=== PATIENT | female | born 1965 | race Caucasian/White ===

== ENCOUNTER 2023-07-16 22:47 | Emergency (ER) | payer OTHER, SELFPAY ==
[2023-07-16 22:52] VITALS: BP 139/83; PULSE 87; RESP 16; TEMP 37.1; O2SAT 96; BMI 22.8
[2023-07-16 23:04] VITALS: PULSE 87
--- NOTE | 2023-07-16 23:04 | ECG_ITS ---
[facility] Test Date: 2023-07-16 Pat Name: Maria C Nguyen Department: Room: - Gender: Female Assistant Business Manager: : 1965 Requested By: Order Number: [id number] Reading MD: DEBORAH MELENDEZ Measurements Intervals [place] Rate: 78 P: 38 CO: 226 QRS: 91 QRSD: 86 T: 77 QT: 380 QTc: 413 Interpretive Statements 1100 Sinus rhythm 2231 First degree AV block 2420 RSR (QR) in lead V1/V2, consistent with right ventricular conduction delay 7102 [address] right axis deviation ST/T wave changes, can't exclude anteroseptaal ischemia 9150 abnormal ECG No previous ECG available for comparison Electronically Signed On 07-18-2023 7:02:42 EDT by DEBORAH MELENDEZ
--- NOTE | 2023-07-16 23:04 | XR_ITS ---
The [address] [address] Patient Name: YEMI MIMS MRN: [id number] date: 1965 Sex: F Assigned Patient Location: ER Current Patient Location: ER Accession/Order Number: [id number] Exam Date: 07/16/2023 23:10 Report Date: 07/16/2023 23:57 At the request of: LUCAS ADKINS Procedure: XR chest 1V EXAM: XR chest 1V HISTORY: chest pain COMPARISON: None. TECHNIQUE: One view of the chest was obtained. FINDINGS: The cardiac silhouette is normal in size. There are postsurgical changes of the chest with median sternotomy wires in place. There is no significant pneumothorax or pleural effusion. No acute osseous abnormality is seen. XR/XR chest 1V IMPRESSION: 1. No acute cardiopulmonary abnormality. Electronically authenticated by: Augustina KIMBALL Date: 07/16/2023 23:57
--- NOTE | 2023-07-16 23:05 | ED_ITS ---
HPI - Chest Pain General Chief Complaint: Chest Pain Stated Complaint: chest pain Time Seen by Provider: 07/16/23 22:50 Source: patient Mode of arrival: walk-in History of Present Illness HPI narrative: 58-year-old female presents for chest pain. It is now resolved according to the patient. It was in the middle part of her sternum and didn't seem to radiate. She did not have shortness of breath. It started as she was falling asleep [place] g[place], shortly before coming into the emergency department. No cough or vomiting or back pain. Related Data Home Medications Medication Instructions Recorded Confirmed cholecalciferol (vitamin D3) 50 07/16/23 mcg (2,000 unit) capsule fluoxetine 10 mg capsule mg 07/16/23 Review of Systems ROS Narrative A ten point review of systems is negative except as noted above. PFSH PFSH Medical History (Updated 07/17/23 @ 01:58 by Caleb Hewitt MD) Multiple sclerosis ?G35 - Multiple sclerosis (ICD-10) Surgical History (Updated 07/16/23 @ 23:10 by Sherin Romero) Heart valve replaced ?Z95.2 - Presence of prosthetic heart valve (ICD-10) Social History Smoking status: Current every day smoker Exam Narrative Exam Narrative: Nurses note and vital signs reviewed and patient is not hypoxic. General: The patient appears well and in no apparent distress. Patient is resting comfortably on cart. Skin: Warm, dry, no pallor noted. There is no rash noted. Head: Normocephalic, atraumatic Eye: Normal conjunctiva, no drainage Ears, Nose, Mouth, and Throat: oral mucosa is moist. Nares patent. Cardiovascular: Regular Rate and Rhythm, not tachycardic Respiratory: Patient is in no distress, no accessory muscle use, lungs are clear to auscultation, no wheezing, rales or rhonchi Back: non-tender GI: nontender Musculoskeletal: The patient has no evidence of calf tenderness, no pitting edema, symmetrical pulses noted bilaterally Neurological: A&O, normal speech Psychiatric: Cooperative Constitutional Vital Signs, click to edit/add: Last Vital Signs Temp 98.7 F 07/16/23 22:52 Pulse 78 07/17/23 00:57 Resp 20 07/17/23 00:57 BP 113/56 07/17/23 00:57 Pulse Ox 98 07/17/23 00:57 O2 Del Method Room Air 07/17/23 00:57 Course Vital Signs Vital signs: Vital Signs Temperature 98.7 F 07/16/23 22:52 Pulse Rate 87 07/16/23 22:52 Respiratory Rate 16 07/16/23 22:52 Blood Pressure 139/83 07/16/23 22:52 Pulse Oximetry 96 07/16/23 22:52 Oxygen Delivery Method Room Air 07/16/23 22:52 Temperature 98.7 F 07/16/23 22:52 Pulse Rate 78 07/17/23 00:57 Respiratory Rate 20 07/17/23 00:57 Blood Pressure 113/56 07/17/23 00:57 Pulse Oximetry 98 07/17/23 00:57 Oxygen Delivery Method Room Air 07/17/23 00:57 MDM - Chest Pain MDM Narrative Medical decision making narrative: the patient's workup including two troponins is negative. She remained symptom- free and will be discharged home. She'll call her doctor in the morning for follow-up. Treatment diagnosis and follow up are discussed with the patient. Differential Diagnosis Differential diagnosis: Likely pneumothorax, unstable angina pectoris, atypical chest pain, st elevation myocardial infarction, costochondritis and chest pain Lab Data Attestation: I reviewed the patient's lab results. Labs: Lab Results 07/16/23 07/16/23 Range/Units 00:17 23:10 WBC 10.3 (4.0-11.0) 10^3/uL RBC 4.76 (4.20-5.40) 10^6/uL Hgb 13.7 (12.0-16.0) g/dL Hct 41.1 (36.0-48.0) % MCV 86.3 (81.0-99.0) fL MCH 28.8 (26.7-34.0) pg MCHC 33.3 (29.9-35.2) g/dL RDW 13.3 (11.0-15.0) % Plt Count 249 (150-450) 10^3/uL MPV 10.7 (9.5-13.5) fL Neut % (Auto) 55.7 (43.0-75.0) % Lymph % (Auto) 30.0 (20.5-60.0) % Rolette % (Auto) 5.7 (1.7-12.0) % Eos % (Auto) 7.2 H (0.9-7.0) % Baso % (Auto) 1.0 (0.2-2.0) % Neut # (Auto) 5.7 (1.4-6.5) 10^3/uL Lymph # (Auto) 3.1 (1.2-3.8) 10^3/uL Rolette # (Auto) 0.6 (0.3-0.8) 10^3/uL Eos # (Auto) 0.7 (0.0-0.7) 10^3/uL Baso # (Auto) 0.1 (0.0-0.1) 10^3/uL Abs Immat Gran (auto) 0.04 H (0.00-0.03) 10^3/uL Imm/Tot Granulo (auto) 0.4 (0.0-0.5) % Sodium 139 (136-145) mmol/L Potassium 3.5 (3.5-5.1) mmol/L Chloride 105 (98-107) mmol/L Carbon Dioxide 28.3 (21.0-32.0) mmol/L Anion Gap 9.2 BUN 15.0 (7.0-18.0) mg/dL Creatinine 0.88 (0.55-1.02) mg/dL Est GFR ( Amer) >60 (>=60) Est GFR (Non-Af Amer) >60 (>=60) BUN/Creatinine Ratio 17.0 Glucose 114 H (74-106) mg/dL Calcium 9.4 (8.5-10.1) mg/dL Troponin I High Sens 5.1 5.2 (4.0-51.3) pg/mL Imaging Data Chest x-ray: Radiologist's impression: Procedure: XR chest 1V EXAM: XR chest 1V HISTORY: chest pain COMPARISON: None. TECHNIQUE: One view of the chest was obtained. FINDINGS: The cardiac silhouette is normal in size. There are postsurgical changes of the chest with median sternotomy wires in place. There is no significant pneumothorax or pleural effusion. No acute osseous abnormality is seen. IMPRESSION: 1. No acute cardiopulmonary abnormality. Electronically authenticated by: Augustina KIMBALL Date: 07/16/2023 23:57 ECG Data Attestation: I personally reviewed and interpreted this ECG as follows: (EKG on my interpretation shows normal sinus rhythm with a rate of 78 and no acute changes. First-degree AV block present.) Heart Score History: Slightly/Non-Suspicious ECG: Normal Age: >45-<65 years Risk Factors: 1 or 2 Risk Factors Troponin: <Normal Limit Total Heart Score Recommendations & Risks:: 2 Discharge Plan Discharge Chief Complaint: Chest Pain Clinical Impression: Chest pain Patient Disposition: Home, Self-Care Time of Disposition Decision: 01:58 Condition: Good Mode of Transportation: Private Vehicle Prescriptions / Home Meds: No Action fluoxetine 10 mg capsule cholecalciferol (vitamin D3) 50 mcg (2,000 unit) capsule Instructions: Chest Pain (ED) Stand Alone Forms: Portal Instructions Referrals: Physician,Non-Staff, MD [Primary Care Provider] - 1 week
--- NOTE | 2023-07-16 23:10 | PC.NURSE ---
Patient was at home trying to fall asleep when she started to experience center nonradiating chest pain. states she has felt this before. hx cardiac surgery in 1999 states she has not had any issues since. states chest pain as since resolved and her brought her in. took nurse to the side after triage and states patient is downplaying the severity of chest pain. states he was watching the football game when he heard the patient screaming out in pain and when he went to check she was clutching her left side but still did not want to come to the emergency room until he threatened to call the ambulance.
[2023-07-16 23:19] LABS: Basophils Absolute Auto 0.1 10^3/uL (0.0-0.1); Eosinophils Absolute Auto 0.7 10^3/uL (0.0-0.7); Eosinophils Percent Auto 7.2 % (0.9-7.0); Hematocrit 41.1 % (36.0-48.0); Hemoglobin 13.7 g/dL (12.0-16.0); Immature Granulocytes Abs Auto 0.04 10^3/uL (0.00-0.03); Immature Granulocytes Pct Auto 0.4 % (0.0-0.5); Lymphocytes Absolute Auto 3.1 10^3/uL (1.2-3.8); Mean Corpuscular HGB Conc 33.3 g/dL (29.9-35.2); Mean Corpuscular Hemoglobin 28.8 pg (26.7-34.0); Mean Corpuscular Volume 86.3 fL (81.0-99.0); Mean Platelet Volume 10.7 fL (9.5-13.5); Monocytes Absolute Auto 0.6 10^3/uL (0.3-0.8); Monocytes Percent Auto 5.7 % (1.7-12.0); Neutrophils Absolute Auto 5.7 10^3/uL (1.4-6.5); Neutrophils Percent Auto 55.7 % (43.0-75.0); Platelet Count 249 10^3/uL (150-450); Red Blood Count 4.76 10^6/uL (4.20-5.40); Red Cell Distribution Width 13.3 % (11.0-15.0); White Blood Count 10.3 10^3/uL (4.0-11.0)
[2023-07-16 23:27] LABS: Anion Gap 9.2; Calcium 9.4 mg/dL (8.5-10.1); Carbon Dioxide 28.3 mmol/L (21.0-32.0); Chloride 105 mmol/L (98-107); Estimated GFR (African America >60 (>=60); Estimated GFR (Non-African Ame >60 (>=60); Glucose 114 mg/dL (74-106); Potassium 3.5 mmol/L (3.5-5.1); Sodium 139 mmol/L (136-145)
[2023-07-16 23:29] VITALS: PULSE 75
[2023-07-16 23:35] LABS: Troponin I High Sensitivity 5.2 pg/mL (4.0-51.3)
[2023-07-17] MEDS: ASPIRIN 81 MG TAB.CHEW 324 MG PO
[2023-07-17 00:57] VITALS: BP 113/56; PULSE 78; RESP 20; O2SAT 98
[2023-07-17 01:33] LABS: Troponin I High Sensitivity 5.1 pg/mL (4.0-51.3)
== END 2023-07-17 02:07 | disposition home or self-care (01) ==
PROVIDERS: Emergency Provider Emergency Medicine
DX: R07.9 Chest pain, unspecified (principal); Z79.899 Other long term (current) drug therapy; F17.210 Nicotine dependence, cigarettes, uncomplicated
CPT/HCPCS: 36415; 71045; 80048; 84484; 85025; 93005; 99285

== ENCOUNTER 2023-08-22 19:23 | Emergency (ER) | payer OTHER, SELFPAY ==
[2023-08-22 19:31] VITALS: BP 121/63; PULSE 79; RESP 16; TEMP 36.9; O2SAT 97; BMI 23.6
--- NOTE | 2023-08-22 19:41 | CT_ITS ---
[address] [address] Patient Name: YEMI MIMS MRN: [id number] date: 1965 Sex: F Assigned Patient Location: ER Current Patient Location: .[facility] Accession/Order Number: [id number] Exam Date: 08/22/2023 19:53 Report Date: 08/22/2023 20:32 At the request of: SERJIO AKINS Procedure: CT chest wo con EXAM: CT chest wo con HISTORY: left sided rib pain, hx PTX COMPARISON: Chest radiograph 07/16/2023 TECHNIQUE: CT of the chest without intravenous contrast. Dose reduction techniques were achieved by using automated exposure control and/or adjustment of mA and/or kV according to patient size and/or use of iterative reconstruction technique. FINDINGS: TUBES AND IMPLANTS: Bilateral breast implants are noted CHEST: CHEST WALL AND LOWER NECK: Prior median sternotomy. There is asymmetric increased fat stranding of the lateral left breast MEDIASTINUM AND DARIUS: No hematoma. No lymphadenopathy by CT size criteria BONES: No acute fracture or dislocation. Mild inferior endplate compression deformity of T5, likely chronic. Mild degenerative changes AORTA: No aneurysm PULMONARY ARTERIES: Pulmonary trunk and central pulmonary arteries appear dilated. Right pulmonary artery measures 3.3 centimeters. CORONARY ARTERIES: No coronary artery calcifications. HEART: Borderline-enlarged LUNG AND AIRWAYS: Bandlike opacities in the left upper lobe and lingula. 2 left lower lobe pulmonary nodules measuring 5 and 3 millimeters PLEURA: Small left pleural effusion UPPER ABDOMEN: No acute findings. CT/CT chest wo con IMPRESSION: 1. There is asymmetric increased fat stranding of the lateral left breast suggesting contusive changes. Mild inferior endplate compression deformity of T5, likely chronic. Otherwise no evidence of acute traumatic injury to the chest. 2. Bandlike opacity in the left upper lobe and lingula likely representing scarring or atelectasis. 3. Small left pleural effusion. 4. Two left lower lobe pulmonary nodules measuring 5 and 3 millimeters. Per Fleischner criteria optional twelve-month CT follow-up based on risk factors for malignancy. Electronically authenticated by: FELISA JENNINGS Date: 08/22/2023 20:32
--- NOTE | 2023-08-22 19:41 | ED.FALL1 ---
HPI - Fall General Chief Complaint: Fall Stated Complaint: Rib Pain Time Seen by Provider: 08/22/23 19:30 Source: patient Mode of arrival: walk-in History of Present Illness HPI Narrative: This 58-year-old female who has a history of a pneumothorax in the past presents for evaluation of left-sided rib pain and difficulty taking a deep breath after she fell over a stump in her yard while going out to close the chicken [employer] helicopter. She states she did not see the stump because it was dark and tumbled falling onto her left side. Her arm was knot under her ribs when she fell. She denies any amol chest pain besides her left lateral ribs. She has no abdominal pain. She has had a pneumothorax in the past. She said Tylenol be coming to the emergency department. She did drive to the Emergency Room. She has pain with movement and deep breathing. No additional injuries or complaints. Related Data Home Medications Medication Instructions Recorded Confirmed cholecalciferol (vitamin D3) 50 07/16/23 mcg (2,000 unit) capsule fluoxetine 10 mg capsule mg 07/16/23 Allergies Allergy/AdvReac Type Severity Reaction Status Date / Time No Known Drug Allergies Allergy Verified 08/22/23 19:34 Review of Systems ROS Status of ROS 10 or more systems reviewed and unremarkable except as noted in history and below [facility] Medical History (Updated 08/22/23 @ 20:59 by Rosi Alonso MD) Multiple sclerosis ?G35 - Multiple sclerosis (ICD-10) Surgical History (Updated 07/16/23 @ 23:10 by Sherin Romero) Heart valve replaced ?Z95.2 - Presence of prosthetic heart valve (ICD-10) Social History Smoking status: Current every day smoker Exam Narrative Exam Narrative: Nurses note and vital signs reviewed and patient is not hypoxic. General: The patient appears uncomfortable and is sitting upright in a chair as this is more comfortable than lying on the bed, no resp distress Skin: Warm, dry, no pallor noted. There is no rash noted. Head: Normocephalic, atraumatic Eye: Normal conjunctiva, no drainage, EOMI. PERRL Ears, Nose, Mouth, and Throat: oral mucosa is moist. Cardiovascular: Regular Rate and Rhythm S1 S2, no murmurs, rubs or gallops Respiratory: tenderness to left lateral mid chest wall, no visible ecchymosis or crepitus, pt experiences pain with inspiration and is unable to take a deep breath, breath sounds are present bilaterally with mild expiratory wheezing on the left Back: non-tender, no CVA tenderness bilaterally to percussion. No midline bony vertebral tenderness or step off GI: Normal bowel sounds, no tenderness to palpation, no masses appreciated. No rebound, guarding, or rigidity noted. Musculoskeletal: The patient has no evidence of calf tenderness, no pitting edema, symmetrical pulses noted bilaterally Neurological: A&O x4, normal speech Psychiatric: Cooperative Constitutional Vital Signs, click to edit/add: Last Vital Signs Temp 98.4 F 08/22/23 19:31 Pulse 79 08/22/23 19:31 Resp 15 08/22/23 19:54 BP 121/63 08/22/23 19:31 Pulse Ox 97 08/22/23 19:54 O2 Del Method Room Air 08/22/23 19:54 Course Vital Signs Vital signs: Vital Signs Temperature 98.4 F 08/22/23 19:31 Pulse Rate 79 08/22/23 19:31 Respiratory Rate 16 08/22/23 19:31 Blood Pressure 121/63 08/22/23 19:31 Pulse Oximetry 97 08/22/23 19:31 Oxygen Delivery Method Room Air 08/22/23 19:31 Temperature 98.4 F 08/22/23 19:31 Pulse Rate 79 08/22/23 19:31 Respiratory Rate 15 08/22/23 19:54 Blood Pressure 121/63 08/22/23 19:31 Pulse Oximetry 97 08/22/23 19:54 Oxygen Delivery Method Room Air 08/22/23 19:54 MDM - Fall MDM Narrative Medical decision making narrative: 58-year-old female presents for evaluation of left-sided chest pain after she fell outside. She fell over a tree stump that she could not see outside because it was dark. She is tender over the left lateral rib cage area with no visible deformity. She does have some mild extra favian wheezing. She is status post valve replacement surgery. Her vital signs are otherwise stable. CT scan of the chest was ordered that does not show any acute rib fracture but does show contusion of the left breast and chronic changes including several pulmonary nodules. It also shows a chronic T5 endplate compression fracture. The patient was aware of the compression fracture. She was given a copy of the CAT scan to share with her family physician regarding the pulmonary nodules. She was encouraged to discontinue smoking. She is medicated emergency department with 60 mg of IM Toradol as she is driving. She'll be given an incentive spirometer and [address] [employer] to use for pain overnight and a prescription for [employer] and ibuprofen to use in the upcoming days. I encouraged her to continue using his mother until all of her symptoms have resolved. Discharge Plan Discharge Chief Complaint: Fall Clinical Impression: Pulmonary nodule seen on imaging study, Fall from standing, Contusion of ribs Time of Disposition Decision: 20:59 Condition: Good Prescriptions / Home Meds: No Action fluoxetine 10 mg capsule cholecalciferol (vitamin D3) 50 mcg (2,000 unit) capsule Instructions: Pulmonary Nodules (ED), Fall Prevention (ED), Rib Contusion (ED) Stand Alone Forms: Portal Instructions Referrals: Physician,Non-Staff, MD [Primary Care Provider] - 1 week
[2023-08-22 19:54] VITALS: RESP 15; O2SAT 97
[2023-08-22] MEDS: KETOROLAC TROMETHAMINE 60 MG/2 ML VIAL IM (20:00)
[2023-08-22] MEDS: HYDROCODONE/ACET 5-325 MG TABLET 2 TAB PO (21:10)
[2023-08-22 21:12] VITALS: BP 117/69; PULSE 66; RESP 15; O2SAT 97
== END 2023-08-22 21:15 | disposition home or self-care (01) ==
PROVIDERS: Emergency Provider Emergency Medicine
DX: S20.212A Contusion of left front wall of thorax, initial encounter (principal); R91.8 Other nonspecific abnormal finding of lung field; W01.10XA Fall on same level from slipping, tripping and stumbling with subsequent striking against unspecified object, initial encounter; Z79.899 Other long term (current) drug therapy; G35 Multiple sclerosis; Z95.2 Presence of prosthetic heart valve; F17.210 Nicotine dependence, cigarettes, uncomplicated
CPT/HCPCS: 71250; 94667; 96372; 99285